=== PATIENT | female | born 1960 | race Caucasian/White ===

== ENCOUNTER 2017-03-24 14:46 | Outpatient (CLI) | payer OTHER ==
[2015-07-16 07:58] VITALS: BP 172/89
--- NOTE | 2017-03-24 15:48 | Diagnostic Imaging Report ---
JANEL VELASCO - EARL [facility] [address] [facility] [address] [place] [address]. [id number] Report Submission Date: Mar 24, 2017 3:35:20 PM CDT Patient Study Name: HECTOR FUENTES Date: Mar 24, 2017 2:58:01 PM CDT Modality Type: US Gender: F Description: US ABD LIMITED : 60 Institution: [facility] Physician: JANEL VELASCO - EARL Examination: Ultrasound gallbladder History: Epigastric discomfort Findings: Sonographic evaluation of the right upper quadrant demonstrates the gallbladder without stones or sludge. Gallbladder wall measures 2.1 mm. Common bile duct measures 23.4 mm. No intrahepatic biliary dilation. Liver demonstrates diffuse increased echogenicity. No mass or cyst. Normal flow on color analysis. Exam sensitivity reduced due to patient's body habitus. Right kidney measures 10.5cm in length. No cortical mass or cyst. No hydronephrosis. Pancreatic region without gross irregularity. Impression: Fatty liver. No gallstone or obstruction. Electronically signed on Mar 24, 2017 3:35:20 PM CDT by: Khalif CULLEN
== END 2017-03-24 14:47 ==
LOC: RAD 14:46
PROVIDERS: ATTEND Family Medicine
DX: R94.5 Abnormal results of liver function studies (principal)
CPT/HCPCS: 76705

== ENCOUNTER 2018-08-18 15:41 | Emergency (ER) | payer OTHER ==
--- NOTE | 2018-08-18 16:31 | ED Physician Documentation ---
Chest Pain - HISTORIAN Historian: patient - HPI Stated Complaint: Episode of Chest Pressure with elevated BP and HR last evening at 1900 Chief Complaint: Chest Pain Additional Information: Patient presents to ED after having chest pressure, 10/10, radiating to neck, following a coughing and sneezing episode. She states she took her blood pressure and it was 164/104 with HR 188. She has a history of Afib and had been on medication including coumadin, however, several years ago Dr. Estrada, sales office manager, took her off all the meds. Patient reports she has not had any trouble until last night. Patient reports after the rapid heart rate went away she took some rolaids and 4 baby aspirins. The chest pressure then went away. She came in to the ED today completely asymptomatic but wanted to make sure she did not have a heart attack last night. Onset: hours (16) Timing: sudden onset Duration: sudden-onset Last known Well Date: 08/17/18 Last Known Well Time: 15:00 Context: other (after a sneezing/coughing fit ) Severity: severe Quality: pressure (10/10) Chest Pain Radiation: neck Chest Pain Signs/Symptoms: tachycardia (180 - 190 bpm), other (hypertension 164/104). denies: nausea, vomiting, dizziness Worsened By: nothing Relieved By: rest, antacids, aspirin Further Comments: no - ROS CONST: none MS/LYMPH: none GI/: none EYES/ENT: none SKIN/ENDO: none NEURO/PSYCH: none - PAST HX AR risk factors: A-Fib (paroxymal ) DVT/PE Risk Factors: none TAD/AAA risk factors: none Neuro deficit: none GI disease: none Lung disease: none Surgeries/Procedures: none Allergies/Adverse Reactions: Allergies Allergy/AdvReac Type Severity Reaction Status Date / Time pseudoephedrine HCl Allergy Verified 08/18/18 16:19 [From Sudafed] Shellfish Allergy Verified 08/18/18 16:19 Home Medications: Ambulatory Orders Medication Instructions Recorded Aspirin [Aspir 81] 81 mg PO DAILY u2 05/28/15 Buspirone HCl [Buspar] 15 mg PO BID 08/18/18 Duloxetine HCl 60 mg PO D 08/18/18 Topiramate 25 mg PO D 08/18/18 - SOCIAL HX Smoking History: non-smoker Alcohol Use: none Drug Use: none - FAMILY HX Family HX: none - VITAL SIGNS Vital Signs: Vital Signs Temp Pulse Resp BP Pulse Ox 98.6 F 62 18 139/73 95 08/18/18 15:41 08/18/18 15:41 08/18/18 15:41 08/18/18 15:41 08/18/18 15:41 - REVIEWED ASSESSMENTS Nursing Assessment Reviewed: Yes Vitals Reviewed: Yes Progress - EKG/XRAY/CT Comments: Sinus bradycardia 58 bpm with nonspecific t wave abnormality ED Results Lab/Radiology - Radiology Radiology Impressions: Portable chest History: Tachycardia Portable chest dated August 18, 2018 demonstrates normal heart size. Pulmonary vascularity is normal. Lungs are clear. Impression: No active disease. Electronically signed on Aug 18, 2018 4:34:53 PM [employer] by: Angle Mccracken - Orders Orders: ED Orders Category Date Time Status Place IV Lock 1T Care 08/18/18 16:15 Active CHEST 2VIEW [RAD] Stat Exams 08/18/18 Taken CBC/PLATELET/DIFF Routine Lab 08/18/18 Ordered CMP Routine Lab 08/18/18 Ordered NT-proBNP Stat Lab 08/18/18 Ordered TROPONIN I (cTnI) Stat Lab 08/18/18 Ordered EKG WITH COMPARISON Stat Ther 08/18/18 Ordered Chest Pain Physical Exam - EXAM General Appearance: no acute distress, alert EENT: BEBA Neck: nml inspection Respiratory: no resp. distress, chest non-tender, nml breath sounds CVS: reg. rate & rhythm, no murmur Abdomen: soft, normal bowel sounds, non-tender Skin: warm/dry, normal color Extremities: non-tender, normal range of motion Neuro: oriented X3, motor nml Discharge Clincal Impression: Chest pressure Clincal Impression: (Ruled Out): Chest pain Referrals: Christiano Schrader MD [Primary Care Provider] - 2 Days Additional Instructions: 1. Keep a blood pressure log. Take blood pressure twice a day at the same time everyday. Take log to your next doctors appointment 2. Continue Home meds as prescribed by Dr. Schrader 3. A stress test and echocardiogram may be beneficial 4. Return to ED with chest pain, shortness of breath or rapid heart rate Condition: Stable Disposition: 01 HOME, SELF-CARE Decision to Admit: NO Date of Decison to Admit: 08/18/18 Decision Time: 17:11
--- NOTE | 2018-08-18 16:36 | Diagnostic Imaging Report ---
VICENTA GUERRERO [facility] [address] [facility] [address] [place], [place]. [address] Report Submission Date: Aug 18, 2018 4:34:53 PM A AND P MECHANIC Patient Study Name: HECTOR FUENTES Date: Aug 18, 2018 4:11:42 PM A AND P MECHANIC Modality Type: DX Gender: F Description: CHEST : 60 Institution: [facility] Physician: VICENTA GUERRERO Portable chest History: Tachycardia Portable chest dated August 18, 2018 demonstrates normal heart size. Pulmonary vascularity is normal. Lungs are clear. Impression: No active disease. Electronically signed on Aug 18, 2018 4:34:53 PM A AND P MECHANIC by: Angle CULLEN
[2018-08-18 16:38] LABS: MEAN CORPUSCULAR HEMOGLOBIN 32.8 pg (28.0-34.0)
[2018-08-18 16:39] LABS: BASOPHILS % 0.3 (0.0-1.5); EOSINOPHILS % 3.9 % (0.0-6.8); MONOCYTES % 7.1 % (0.0-11.0); NEUTROPHILS # 3.9 # k/uL (1.4-7.7)
[2018-08-18 16:49] LABS: eGFR (Non-African) > 60
[2018-08-18 17:27] VITALS: BP 142/72
== END 2018-08-18 17:20 | disposition home or self-care (01) ==
LOC: ED 15:41
DX: R07.89 Other chest pain (principal)
CPT/HCPCS: 36415; 71046; 80053; 83880; 84484; 85025; 99283; 99284; S1016